=== PATIENT | female | born 2000 | race American Indian/Alaskan Native ===

== ENCOUNTER 2021-05-18 13:58 | Emergency (ER) | payer MEDICAID ==
--- NOTE | 2021-05-18 14:43 | EDM.PDOC ---
ED HPI GENERAL MEDICAL PROBLEM - General Chief Complaint: Skin Complaint Stated Complaint: SCABS AND RASH ALL OVER ARMS Time Seen by Provider: 05/18/21 14:30 Source of Information: Reports: Patient, RN. Denies: Old Records History Limitations: Reports: Other (no old records) - History of Present Illness INITIAL COMMENTS - FREE TEXT/NARRATIVE: 20 yo female presents with scabs on both forearms that have been present for a few days and seem to be spreading. Does not have itching. Denies meth use. No fever. Onset: Gradual Duration: Day(s):, Getting Worse Location: Reports: Upper Extremity, Left, Upper Extremity, Right Quality: Reports: Other (no pain) Severity: Mild Improves with: Reports: None Worsens with: Reports: Other (time) Context: Reports: Other (See HPI) Associated Symptoms: Reports: No Other Symptoms Treatments TARE WEIGHER: Reports: Other (see below) (none) Bilateral Arm Pain Score (Numeric/FACES): 4 - Related Data Allergies Allergy/AdvReac Type Severity Reaction Status Date / Time coconut Allergy Anaphylactic Verified 05/18/21 14:29 Shock ranitidine [From Zantac] Allergy Rash Verified 05/18/21 14:29 Home Meds: Home Meds Sulfamethoxazole/Trimethoprim [Bactrim Ds Tablet] 1 each PO Q12H #15 tablet 05/18/21 [Rx] Social & Family History - Tobacco Use Tobacco Use Status *Q: Heavy Tobacco User Years of Tobacco use: 5 Packs/Tins Daily: 2 - Caffeine Use Caffeine Use: Reports: Energy Drinks - Recreational Drug Use Recreational Drug Use: No ED ROS GENERAL - Review of Systems Review Of Systems: See Below Constitutional: Reports: No Symptoms HEENT: Reports: No Symptoms Respiratory: Reports: No Symptoms Cardiovascular: Reports: No Symptoms GI/Abdominal: Reports: No Symptoms Musculoskeletal: Reports: No Symptoms Skin: Reports: Rash (forearms only) ED EXAM, SKIN/RASH Exam: See Below Exam Limited By: No Limitations General Appearance: Alert, WD/WN, No Apparent Distress Skin: Warm, Dry, Other (crusted lesions scattered over both forearms. No pustules noted. Not hot to touch. ) Location, Skin: Upper Extremity, Right, Upper Extremity, Left Characteristics: Erythematous (the base), Other (crusted) Associated features: No: Warmth, Tenderness, Lymphangitis Departure - Departure Time of Disposition: 14:42 Disposition: Home, Self-Care 01 Condition: Good Clinical Impression: Infection of skin due to methicillin resistant Staphylococcus aureus (MRSA) - Discharge Information *PRESCRIPTION DRUG MONITORING PROGRAM REVIEWED*: Not Applicable *COPY OF PRESCRIPTION DRUG MONITORING REPORT IN PATIENT [place]: Not Applicable Prescriptions: Sulfamethoxazole/Trimethoprim [Bactrim Ds Tablet] 1 each PO Q12H #15 tablet Instructions: MRSA Infection, Diagnosis, Adult Referrals: PCP,None [Primary Care Provider] - Additional Instructions: Take Bactrim DS every 12 hrs until gone. Frequent hand washing with soap and water. Wear long sleeve shirts to reduce risk of spread. Recheck with your provider in a week for a nasal culture to show full clearance. Return as needed if worse.
== END 2021-05-18 15:04 | disposition home or self-care (01) ==
LOC: JP.ED 13:58
DX: A49.02 Methicillin resistant Staphylococcus aureus infection, unspecified site (principal); Z72.0 Tobacco use; Z91.018 Allergy to other foods; Z88.8 Allergy status to other drugs, medicaments and biological substances
CPT/HCPCS: 99282